=== PATIENT | male | born 1985 | race Caucasian/White ===

== ENCOUNTER 2021-06-07 18:44 | Emergency (ER) | payer OTHER, BC ==
[2021-06-07] MEDS ORDERED: Proparacaine 0.5% Ophth Soln 15 ML Bottle EYEBOTH ONE (19:03)
[2021-06-07] MEDS ORDERED: Erythromycin Base 0.5% Ophth Oint 1 GM Tube EYEBOTH ONE (19:04)
[2021-06-07] MEDS ORDERED: Fluorescein 1 MG Ophth Strip EYEBOTH ONE (19:05)
== END 2021-06-07 20:05 | disposition home or self-care (01) ==
LOC: JP.ED 18:44
DX: T65.91XA Toxic effect of unspecified substance, accidental (unintentional), initial encounter (principal); H10.213 Acute toxic conjunctivitis, bilateral
CPT/HCPCS: 99283; A9270-GY